=== PATIENT | male | born 1975 | race Caucasian/White ===

== ENCOUNTER 2019-10-03 10:13 | Emergency (ER) | payer SELFPAY ==
[~2019-10-03] VITALS: Ht 152.4 cm; Wt 113.4 kg
[2019-10-03 10:13] VITALS: BP 168/89; Ht 152.4 cm; Wt 113.4 kg
== END 2019-10-03 11:10 | disposition home or self-care (01) ==
LOC: ED 10:13
DX: J02.9 Acute pharyngitis, unspecified (principal); E66.01 Morbid (severe) obesity due to excess calories; Z68.42 Body mass index [BMI] 45.0-49.9, adult